=== PATIENT | male | born 2000 | race Hispanic/Latino ===

== ENCOUNTER 2020-03-22 14:51 | Emergency (ER) | payer BC ==
[~2020-03-22] VITALS: Ht 170.2 cm; Wt 83.5 kg
--- NOTE | 2020-03-22 15:58 | Diagnostic Imaging Report ---
Examination: CT head without contrast Clinical Indication: Head injury by object. Technique: Transaxial noncontrast images from the skull base through the vertex were obtained. Sagittal and coronal reformatted images were done. Dose modulation, iterative reconstruction, and/or weight based adjustment of the mA/kV was utilized to reduce the radiation dose to as low as reasonably achievable. Comparison: None. Findings: Scalp: No abnormalities. Bones: Intact. No fractures. No blastic or lytic lesions. Brain sulci: Appropriate for patient's age. Ventricles: Normal in size and configuration. No hydrocephalus. Extra-axial space: No abnormalities. Parenchyma: No abnormal densities. No masses, hemorrhage, or acute or chronic cortical based vascular insults. Suprasellar region: No abnormalities. Craniocervical junction: The foramen magnum is patent. No Chiari one malformation. Impression: No intracranial abnormality. Signed by: Dr. Karolyn Saxena M.D. on 03/22/2020 3:54 PM
[2020-03-22 16:06] VITALS: BP 146/84
--- NOTE | 2020-03-22 16:24 | Diagnostic Imaging Report ---
Examination: CT C-SPINE W/O - HOPD HISTORY:Neck pain and injury by falling object. COMPARISON:None. TECHNIQUE: Multidetector helical axial images were obtained without contrast from the foramen magnum to T1. Coronal and sagittal reformatted images were done. Bone and soft tissue windows were evaluated. Dose modulation, iterative reconstruction, and/or weight based adjustment of the mA/kV was utilized to reduce the radiation dose to as low as reasonably achievable. FINDINGS: Alignment:Normal alignment and lordosis. Vertebrae: Normal height and density. No acute fracture, infection or neoplasm. Disc space heights: Normal height. Caliber of spinal canal: Developmentally normal. Posterior fossa and craniocervical junction: Foramen magnum patent. No Chiari 1 malformation. Soft tissues: No abnormality. Degenerative changes: No disc bulge/ herniation or foraminal or canal stenosis. Visualized lung apices: No abnormalities. IMPRESSION: No acute abnormalities. Signed by: Dr. Karolyn Saxena M.D. on 03/22/2020 4:20 PM
== END 2020-03-22 16:06 | disposition home or self-care (01) ==
LOC: FSED 14:51
DX: S06.0X0A Concussion without loss of consciousness, initial encounter (principal); R51 Headache; M54.2 Cervicalgia; W20.8XXA Other cause of strike by thrown, projected or falling object, initial encounter; Y99.0 Civilian activity done for income or pay
CPT/HCPCS: 70450; 72125; 99283

== ENCOUNTER 2021-09-11 12:43 | Emergency (ER) | payer BC ==
[~2021-09-11] VITALS: Ht 170.2 cm; Wt 83.5 kg
[2021-09-11] MEDS ORDERED: IBUPROFEN 600 MG TAB PO NR (13:14)
[2021-09-11] MEDS ORDERED: CYCLOBENZAPRINE HCL 10 MG TAB PO NR (13:15)
[2021-09-11] MEDS ORDERED: CYCLOBENZAPRINE10 MG PO (13:17)
[2021-09-11] MEDS ORDERED: IBUPROFEN800 MG PO (13:18)
[2021-09-11] MEDS ORDERED: IBUPROFEN 600 MG TAB ONE (13:36)
[2021-09-11] MEDS ORDERED: CYCLOBENZAPRINE HCL 10 MG TAB ONE (13:36)
== END 2021-09-11 13:56 | disposition home or self-care (01) ==
LOC: FSED 13:10
DX: M54.50 Low back pain, unspecified (principal); M62.830 Muscle spasm of back; F17.210 Nicotine dependence, cigarettes, uncomplicated
CPT/HCPCS: 99283